=== PATIENT | male | born 1970 | race Caucasian/White ===

== ENCOUNTER 2017-04-30 03:03 | Emergency (ER) | payer OTHER ==
[2017-04-30 04:22] LABS: BASOPHIL % 0.5 % (0-2); PLATELET COUNT 199 x10^3mcL (130-400); RED CELL DISTRIBUTION WIDTH 13.3 % (11.5-14.5)
[2017-04-30 04:33] LABS: CALCIUM 9.3 mg/dL (8.5-10.1); CARBON DIOXIDE 29.1 mmol/L (21-32); CHLORIDE SERUM 106 mmol/L (98-107); CREATININE SERUM 1.1 mg/dL (0.7-1.3); GFR1 > 60 mL/min; GLUCOSE SERUM 109 mg/dL (74-106); POTASSIUM SERUM 3.8 mmol/L (3.5-5.1); SODIUM SERUM 140 mmol/L (136-145)
[2017-04-30 04:37] LABS: ALBUMIN 3.9 g/dL (3.4-5.0); ALKALINE PHOSPHATASE 56 U/L (46-116); ALT/SGPT 45 U/L (16-63); AST/SGOT 18 U/L (15-37); BILIRUBIN TOTAL 0.5 mg/dL (0.20-1.00); TOTAL PROTEIN, SERUM 6.9 g/dL (6.4-8.2)
[2017-04-30 05:23] LABS: UA SPECIFIC GRAVITY >=1.030 (1.005-1.035); microscopic required? YES
[2017-04-30 05:24] LABS: urine erythrocyte NEGATIVE (NEGATIVE)
[2017-04-30 05:30] LABS: AMPHETAMINE QUAL UR NONE DETECTED (NEG <=1000)
[2017-04-30 05:57] VITALS: BP 145/89
== END 2017-04-30 09:50 | disposition short-term general hospital (02) ==
LOC: EDBD 03:03 → ED 03:03
PROVIDERS: Specialist
DX: F41.9 Anxiety disorder, unspecified (principal)
CPT/HCPCS: 36415; 83880; G0480